=== PATIENT | female | born 1990 | race Two or more races ===

== ENCOUNTER 2025-11-19 18:16 | Emergency (ER) | payer MEDICAID ==
[~2025-11-19] VITALS: Ht 162.6 cm; Wt 85.9 kg
[2025-11-19 18:20] VITALS: BP 88/44; PULSE 73; RESP 16; TEMP 98.3; O2SAT 98
[2025-11-19 19:21] LABS: Hemoglobin 9.9 g/dL (12.2-16.2)
[2025-11-19 19:23] LABS: Hematocrit 30.8 % (36.0-46.0); Mean Corpuscular Hemoglobin 24.5 pg (28.0-32.0); Mean Corpuscular Volume 76.2 fL (80.0-100.0); Nucleated Red Blood Cells % 0.0 %
[2025-11-19 19:45] LABS: Albumin 3.6 g/dL (3.2-4.8); Alkaline Phosphatase 101 U/L (46-116); Anion Gap 7 (5-15); Carbon Dioxide 24 mmol/L (20-31); Lipase 23 U/L (12-53); Potassium 3.6 mmol/L (3.5-5.1); Sodium 139 mmol/L (136-145); Total Protein 6.1 g/dL (5.7-8.2)
[2025-11-19 19:46] LABS: Bilirubin, Total 0.7 mg/dL (0.2-1.0)
[2025-11-19 19:49] LABS: Alanine Aminotransferase 45 U/L (7-40); BUN/Creatinine Ratio 6.7 (10.0-20.0); Blood Urea Nitrogen < 5 mg/dL (9-23); Calcium 8.1 mg/dL (8.7-10.4); Chloride 108 mmol/L (98-107); Glucose 125 mg/dL (74-106)
--- NOTE | 2025-11-19 20:06 | DVH ---
EXAM: CT CT AB PEL WO CON-NO ORAL OR IV History: abd pain Comparison Study: None TECHNIQUE: Multidetector CT of the abdomen AND PELVIS without IV contrast. Axial, coronal and sagittal multiplanar reformats were obtained from the axial data set by the technologist. Radiation Dose Information: CT Dose: CTDI volume is 18.69 mGy. Dose-length product is 1039.55 mGy*cm FINDINGS: Bilateral dependent atelectasis. Partially visualized heart is normal in size. Trace pericardial effusion. Status post cholecystectomy. Liver, spleen, gallbladder, pancreas and adrenal glands unremarkable. Kidneys and Ureters unremarkable. Mild wall thickening of the Urinary bladder. Focus of air within the Nondependent portion of the urinary bladder which may be iatrogenic. Uterus is unremarkable. Limited evaluation of the adnexa. Stomach is unremarkable. Mild wall Thickening of proximal Small bowel loops. Fluid-filled tubular structure within the pelvis which may represent small bowel loops. Remainder of the small bowel loops unremarkable. Appendix is unremarkable. Moderate to large amount of fecal material within the colon. No evidence of intraperitoneal free air or free fluid. Mild mesenteric edema. No evidence of aortic aneurysm. Upper retroperitoneal slightly prominent lymph node measuring up to 0.9 cm which may be reactive. The soft tissues are unremarkable. No evidence of acute osseous abnormalities. IMPRESSION: Limited noncontrast imaging. Fluid-filled tubular structure within the right hemipelvis which may represent bowel with hydrosalpinx within the differential. Pelvic ultrasound should be considered for further evaluation. Mild wall Thickening of proximal Small bowel loops which may be due to inadequate distention/ enteritis. Mild wall thickening of the urinary bladder , possibly from inadequate distention. Correlation with urinalysis is recommended to exclude cystitis. Air within the nondependent portion of the urinary bladder which may be iatrogenic. Correlate for recent instrumentation. Moderate to large amount of fecal material within the colon. Mild mesenteric edema.
--- NOTE | 2025-11-19 20:52 | ED.PDOC ---
History of Present Illness HPI Comments 35 y/o obese F is BIBA for c/c of nonradiating, lower abdominal pain. Significant history for cholecystectomy. Patient reports on ongoing pain following initial, unprovoked and atraumatic onset, last night. Associated nausea without vomiting and dizziness. Denial of any cough, fever, chills, diarrhea, constipation, or further acute symptoms Patient reports starting her menstrual cycle 2x days ago and is, actively, bleeding. On scene, patient was found hypotensive and given 500ml NS bolus en route by EMS personnel. Chief Complaint: Abdominal Pain Time Seen by MD: 18:40 Primary Care Provider: NONE Reviewed Notes: Nurses Notes, Medications, Allergies Allergies: Coded Allergies: NO KNOWN ALLERGIES (Unverified , 08/09/16) Home Meds No Active Prescriptions or Reported Meds Information Source: Patient, Emergency Med Personnel Mode of Arrival: EMS Severity: Moderate Timing: Hours Duration: Since onset Prehospital treatment: None Past Medical History PAST MEDICAL HISTORY: Denies Surgical History: Cholecystectomy CERTIFIED MEDICAL ASSISTANT History: No Pertinent CERTIFIED MEDICAL ASSISTANT History Family History Family History: No family hx of HTN Social History Smoker: Non-Smoker Alcohol: Rarely Drugs: Denies Drug Use Lives In: Home All Other Systems: Reviewed and Negative (Comprehensive systems review obtained and negative except for what is stated in the HPI.) Physical Exam General Appearance: No Apparent Distress, Obese HEENT: Normal ENT Inspection, Pharynx Normal, TMs Normal Neck: Full Range of Motion, Non-Tender, Normal, Normal Inspection Respiratory: Chest Non-Tender, Lungs Clear, No Accessory Muscle Use, No Respiratory Distress, Normal Breath Sounds Cardiovascular: No Edema, No JVD, No Murmur, No Gallop, Normal Peripheral Pulses, Regular Rate/Rhythm Breast Exam: Deferred Gastrointestinal: Diffuse (lower abdomen tenderness ), No Organomegaly, No Pulsatile Mass, Normal Bowel Sounds, Soft, Tenderness (lower abdomen, diffused ) Genitalia: Deferred Pelvic: Deferred Rectal: Deferred Extremities: No calf tenderness, Normal capillary refill, Normal inspection, Normal range of motion, Non-tender, No pedal edema Musculoskeletal : Apperance: Normal Neurologic: Alert, 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 Was a procedure done?: No Differential Dx Considerations may include: gastritis, gastroenteritis, ovarian cysts, ovarian torsion, ectopic , vaginitis, PID, diverticulitis, appendicitis, among others X-Ray, Labs, Meds, VS Vital Signs Date Time Temp Pulse Resp B/P (MAP) Pulse Ox O2 Delivery O2 Flow Rate FiO2 11/19/25 18:20 98.3 73 16 88/44 98 98.3 Lab Test 11/19/25 18:57 11/19/25 18:44 Range/Units Sodium Level 139 136-145 mmol/L Potassium Level 3.6 3.5-5.1 mmol/L Chloride Level 108 H 98-107 mmol/L Carbon Dioxide Level 24 20-31 mmol/L Anion Gap 7 5-15 Blood Urea Nitrogen < 5 L 9-23 mg/dL Creatinine 0.75 0.550-1.02 mg/dL Glomerular Filtration Rate Calc 106 >90 mL/min BUN/Creatinine Ratio 6.7 L 10.0-20.0 Serum Glucose 125 H 74-106 mg/dL Lactic Acid Level 1.6 0.4-2.0 mmol/L Calcium Level 8.1 L 8.7-10.4 mg/dL Total Bilirubin 0.7 0.2-1.0 mg/dL Aspartate Amino Transferase (AST) 26 13-40 U/L Alanine Aminotransferase (ALT) 45 H 7-40 U/L Alkaline Phosphatase 101 46-116 U/L Total Protein 6.1 5.7-8.2 g/dL Albumin 3.6 3.2-4.8 g/dL Lipase 23 12-53 U/L White Blood Count 9.6 4.4-10.8 10^3/uL Red Blood Count 4.04 4.0-5.20 10^6/uL Hemoglobin 9.9 L 12.2-16.2 g/dL Hematocrit 30.8 L 36.0-46.0 % Mean Corpuscular Volume 76.2 L 80.0-100.0 fL Mean Corpuscular Hemoglobin 24.5 L 28.0-32.0 pg Mean Corpuscular Hemoglobin Concent 32.2 32.0-36.0 g/dL Red Cell Distribution Width 17.2 H 11.8-14.3 % Platelet Count 218 140-450 10^3/uL Mean Platelet Volume 8.4 6.9-10.8 fL Neutrophils (%) (Auto) 78.9 37.0-80.0 % Lymphocytes (%) (Auto) 7.7 L 10.0-50.0 % Monocytes (%) (Auto) 12.8 H 0.0-12.0 % Eosinophils (%) (Auto) 0.2 0.0-7.0 % Basophils (%) (Auto) 0.4 0.0-2.0 % Neutrophils # (Auto) 7.6 1.6-8.6 10 ^3/uL Lymphocytes # (Auto) 0.7 0.4-5.4 10 ^3/uL Monocytes # (Auto) 1.2 0-1.3 10 ^3/uL Eosinophils # (Auto) 0 0-0.8 10 ^3/uL Basophils # (Auto) 0 0-0.2 10 ^3/uL Nucleated Red Blood Cells 0.0 % [place] [id number] Ph: [phone] DIAGNOSTIC IMAGING Diagnostic Imaging Report : [id number] Signed PATIENT: REMBERTO RICHARDSON ACCT: [id number] UNIT: [id number] : 1990 LOC: ER ROOM / BED: / AGE / SEX: 35 / F ADM STATUS: REG ER SERVICE 43 ORDERING PHYSICIAN: RACHEL SIMMS PROCEDURE(s): ABPL - CT AB PEL WO CON-NO ORAL OR IV REASON: abd pain ORDER NUMBER(s): [id number], ACCESSION NUMBER(s): [id number] EXAM: CT CT AB PEL WO CON-NO ORAL OR IV History: abd pain Comparison Study: None TECHNIQUE: Multidetector CT of the abdomen AND PELVIS without IV contrast. Axial, coronal and sagittal multiplanar reformats were obtained from the axial data set by the technologist. Radiation Dose Information: CT Dose: CTDI volume is 18.69 mGy. Dose-length product is 1039.55 mGy*cm FINDINGS: Bilateral dependent atelectasis. Partially visualized heart is normal in size. Trace pericardial effusion. Status post cholecystectomy. Liver, spleen, gallbladder, pancreas and adrenal glands unremarkable. Kidneys and Ureters unremarkable. Mild wall thickening of the Urinary bladder. Focus of air within the Nondependent portion of the urinary bladder which may be iatrogenic. Uterus is unremarkable. Limited evaluation of the adnexa. Stomach is unremarkable. Mild wall Thickening of proximal Small bowel loops. Fluid-filled tubular structure within the pelvis which may represent small bowel loops. Remainder of the small bowel loops unremarkable. Appendix is unremarkable. Moderate to large amount of fecal material within the colon. No evidence of intraperitoneal free air or free fluid. Mild mesenteric edema. No evidence of aortic aneurysm. Upper retroperitoneal slightly prominent lymph node measuring up to 0.9 cm which may be reactive. The soft tissues are unremarkable. No evidence of acute osseous abnormalities. IMPRESSION: Limited noncontrast imaging. Fluid-filled tubular structure within the right hemipelvis which may represent bowel with hydrosalpinx within the differential. Pelvic ultrasound should be considered for further evaluation. Mild wall Thickening of proximal Small bowel loops which may be due to inadequate distention/ enteritis. Mild wall thickening of the urinary bladder , possibly from inadequate distention. Correlation with urinalysis is recommended to exclude cystitis. Air within the nondependent portion of the urinary bladder which may be iatrogenic. Correlate for recent instrumentation. Moderate to large amount of fecal material within the colon. Mild mesenteric edema. ATED BY: KENYA MAJOR DO DICTATED DATE/TIME: 11/19/252002 SIGNED BY: KENYA MAJOR DO SIGNED DATE/TIME: 11/19/252002 CC: Time of 1ST Reevaluation: 19:20 Reevaluation 1ST: Unchanged Patient Education/Counseling: Diagnosis, Treatment Family Education/Counseling: No Family Present SEPSIS Sepsis Screen Date sepsis recognized/suspect: Nov 19, 2025 Time Sepsis recognized/suspect: 1819 Recent Procedure: No On Antibiotic Therapy: No Respiratory Rate >20: No Heart Rate >90: No Temp<36 C (96.8 F) or >38.3 C: No SBP <90 or MAP <65 mmHG: Yes New Acute Mental Status Change: No Is the patient on CPAP, BIPAP,: No Physician Orders Urinalysis (11/19/25 18:44) Ct Ab Pel Wo Con-No Oral Or Iv (11/19/25 18:44) Urine Bacterial Culture (11/19/25 18:44) Vital Signs Date Time Temp Pulse Resp B/P (MAP) Pulse Ox O2 Delivery O2 Flow Rate FiO2 11/19/25 18:20 98.3 73 16 88/44 98 98.3 Laboratory Tests Test 11/19/25 18:44 11/19/25 18:57 White Blood Count 9.6 10^3/uL (4.4-10.8) Lactic Acid Level 1.6 mmol/L (0.4-2.0) Departure 1 Departure e-Prescriptions No Active Prescriptions or Reported Meds Critical Care Note Critical Care Time?: No Stability Stability form required: No Heart Score Heart Score: Heart Score Response (Comments) Value History N/A 0 EKG N/A 0 Age N/A 0 Risk Factors N/A 0 Troponin N/A 0 Total 0 I personally scribed for RACHEL SIMMS ([email or web address]) on 11/19/25 at 20:52. Electronically submitted by Vargas Webster ([email or web address]). RACHEL SIMMS Nov 19, 2025 20:52
== END 2025-11-19 21:19 | disposition left against medical advice (07) ==
LOC: ER 18:16 → EDBD 18:16 → ER 21:19
DX: R10.30 Lower abdominal pain, unspecified (principal); Z90.49 Acquired absence of other specified parts of digestive tract
CPT/HCPCS: 36415; 74176; 80053; 83605; 83690; 85025